=== PATIENT | female | born 1955 | race Caucasian/White ===

== ENCOUNTER → 2017-12-25 | Outpatient (REF) ==
[~2017-12-25] MED LIST: PREMPRO 0.625/21 TAB PO; PROTONIX20 MG PO; SEROQUEL100 MG PO; SERZONE PO; XANAX0.5 MG PO
[2017-12-25 18:54] LABS: THYROID STIMULATING HORMONE 3.13 uIU/mL (0.465-4.680)
== END ==
LOC: ZLAB.WCH 17:52
PROVIDERS: Internal Medicine
DX: Z01.89 Encounter for other specified special examinations (principal)